=== PATIENT | female | born 1970 | race American Indian/Alaskan Native ===

== ENCOUNTER 2020-10-13 08:28 | Emergency (ER) | payer MEDICAID ==
[2020-10-13 08:46] VITALS: BP 187/108
[2020-10-13] MEDS ORDERED: ONDANSETRON 4 MG ODT TAB ONE (10:13)
[2020-10-13] MEDS ORDERED: ONDANSETRON 4 MG ODT TAB PO ONE (10:14)
--- NOTE | 2020-10-13 10:14 | Event Note ---
ED Screening Note ED Screening Note: N/V that began last night last had pizza no abd pain no fever no diarrhea 4-5 episodes PMHx DM, HTN on insulin did not take BP medication today no allergies to meds LNMP: 09/30/2020 This initial assessment/diagnostic orders/clinical plan/treatment(s) is/are subject to change based on patients health status, clinical progression and re- assessment by fellow clinical providers in the ED. Further treatment and workup at subsequent clinical providers discretion. Patient/guardian urged not to elope from the ED as their condition may be serious if not clinically assessed and managed. Initial orders include: labs, UA
[2020-10-13 10:59] LABS: Bacteria,Urine 1+ /HPF (Negative); Bilirubin,Urine NEG (Negative); Blood,Urine NEG (Negative); Color,Urine Yellow (Yellow); Mucus,Urine 3+ /HPF; Urobilinogen,Urine < 2.0 mg/dL (<2.0)
[2020-10-13 12:19] LABS: Basophils % (Auto) 0.3 % (0.0-1.8); Hematocrit 35.7 % (30.3-42.9); Hemoglobin 11.8 gm/dl (10.1-14.3); Lymphocytes # (Auto) 0.6 K/mm3 (1.2-5.4); Lymphocytes % (Auto) 11.2 % (13.4-35.0); Mean Corpuscular HGB Conc 33 % (30-34); Mean Corpuscular Volume 83 fl (79-97); Monocytes # (Auto) 0.2 K/mm3 (0.0-0.8); Monocytes % (Auto) 2.7 % (0.0-7.3); Platelet Count 336 K/mm3 (140-440); Red Blood Count 4.31 M/mm3 (3.65-5.03); Red Cell Distribution Width 13.8 % (13.2-15.2)
[2020-10-13 12:41] LABS: Alanine Aminotransferase 8 units/L (7-56); Albumin 4.1 g/dL (3.9-5); Blood Urea Nitrogen 15 mg/dL (7-17); Calcium 9.3 mg/dL (8.4-10.2); Hemolysis Index 1
[2020-10-13 12:42] LABS: BUN/Creatinine Ratio 25
[2020-10-13] MEDS ORDERED: SODIUM CHLORIDE 0.9% 1000 ML 1,000 ML IV ONE (14:21)
[2020-10-13] MEDS ORDERED: INSULIN REGULAR, HUMAN 100 UNIT/ML 3ML VIAL IV ONE (14:21)
--- NOTE | 2020-10-13 15:26 | Emergency Department Report ---
ED N/V/D HPI - General Chief complaint: Nausea/Vomiting/Diarrhea Stated complaint: ELEVATED BLOOD GLUCOSE,MALAISE Time Seen by Provider: 10/13/20 10:12 Source: patient, EMS Mode of arrival: Wheelchair Limitations: No Limitations - History of Present Illness Initial comments: The patient was evaluated in the emergency department for symptoms described in the history of present illness. He/she was evaluated in the context of the global COVID-19 pandemic, which necessitated consideration that the patient might be at risk for infection with the virus that causes COVID-19. Institutional protocols and algorithms that pertain to the evaluation of patie nts at risk for COVID-19 are in a state of rapid change based on information released by regulatory bodies including the CDC and federal and state organizations. These policies and algorithms were followed during the patient's care in the emergency department. Please note that these policies, procedures and recommendations changed on a rapid basis. 50-year-old -[place] female reports to the emergency room complaining of nausea and vomiting since last night. Patient states that she was seen at [place]. Patient reports that she left AMA as they wanted to admit her. Patient states that she is currently on insulin and Lantus but does not have any money to get her medications. Patient also reports that she is on lisinopril for her blood pressure. But has not taken that as well. Patient last vomited was prior to arrival. Patient does not admit to nausea. She denies any fever chills no chest pain or shortness of breath. Patient reports that she is homeless and living out of her car. MD complaint: nausea, vomiting -: Last night Description of Vomiting: food contents Associated Abdominal Pain: No Severity: mild Improves with: none Worsens with: none Context: possible food poisoning Associated Symptoms: nausea/vomiting - Related Data Allergies Allergy/AdvReac Type Severity Reaction Status Date / Time No Known Allergies Allergy Unverified 10/13/20 08:37 ED Review of Systems ROS: Stated complaint: ELEVATED BLOOD GLUCOSE,MALAISE Other details as noted in HPI Comment: All other systems reviewed and negative ED Past Medical Hx - Past Medical History Hx Hypertension: Yes Hx Diabetes: Yes - Surgical History Additional Surgical History: ANKLE - Social History Smoking Status: Never Smoker Substance Use Type: None ED Physical Exam - General Limitations: No Limitations General appearance: alert, in no apparent distress - Head Head exam: Present: atraumatic, normocephalic - Eye Eye exam: Present: normal appearance - ENT ENT exam: Present: mucous membranes moist - Neck Neck exam: Present: normal inspection - Respiratory Respiratory exam: Present: normal lung sounds bilaterally. Absent: respiratory distress - Cardiovascular Cardiovascular Exam: Present: regular rate, normal rhythm. Absent: systolic murmur, diastolic murmur, rubs, gallop - GI/Abdominal GI/Abdominal exam: Present: soft, normal bowel sounds - Neurological Exam Neurological exam: Present: alert, oriented X3, normal gait - Psychiatric Psychiatric exam: Present: normal affect, normal mood - Skin Skin exam: Present: warm, dry, intact, normal color. Absent: rash ED Course Vital Signs 10/13/20 10/13/20 08:39 08:41 Temperature 97.8 F Pulse Rate 91 H Respiratory 18 Rate Blood Pressure 187/108 O2 Sat by Pulse 99 Oximetry ED Medical Decision Making - Lab Data Result diagrams: 10/13/20 11:55 10/13/20 11:55 - Medical Decision Making 50-year-old -[place] female reports to the emergency room complaining of nausea and vomiting since last night. Patient states that she was seen at [place]. Patient reports that she left AMA as they wanted to admit her. Patient states that she is currently on insulin and Lantus but does not have any money to get her medications. Patient also reports that she is on lisinopril for her blood pressure. But has not taken that as well. Patient last vomited was prior to arrival. Patient does not admit to nausea. She denies any fever chills no chest pain or shortness of breath. Patient reports that she is homeless and living out of her car. Patient had her blood sugar check just prior to having insulin administered and it was less than 300. Patient be discharged home and instructed to take her medications as prescribed. Patient will be given Phenergan before being discharged. Critical care attestation.: If time is entered above; I have spent that time in minutes in the direct care of this critically ill patient, excluding procedure time. ED Disposition Clinical Impression: Nausea and vomiting in adult patient, Diabetes Disposition: DC-01 TO HOME OR SELFCARE Is pt being admited?: No Does the pt Need Aspirin: No Condition: Stable Instructions: Diabetes Mellitus Type 2 in Adults (ED), Nausea and Vomiting, Adult, [id number], Tips for Eating Away From Home If You Have Diabetes, [place] Diet Additional Instructions: Blood sugars less than 300 which you should continue with your chronic medications. Follow-up with your primary care provider. Increase your water intake advance your diet as tolerated. Referrals: PRIMARY CARE, [Primary Care Provider] - 3-5 Days [facility] [Provider Group] - 3-5 Days
[2020-10-13] MEDS: PROMETHAZINE 25 MG TAB PO ONE ×2 (15:39→15:53)
== END 2020-10-13 16:15 | disposition home or self-care (01) ==
LOC: ED 08:28
DX: E11.9 Type 2 diabetes mellitus without complications (principal); R11.2 Nausea with vomiting, unspecified; I10 Essential (primary) hypertension
CPT/HCPCS: 36415; 80053; 81001; 82962; 83690; 85025; 99284; Q0169; Q0162